=== PATIENT | male | born 1960 | race Caucasian/White ===

== ENCOUNTER 2021-05-14 11:12 | Emergency (ER) | payer OTHER, BC ==
[2021-05-14 11:43] LABS: CHLORIDE,CL 101 mEq/L (98-106); SODIUM,NA 138 mEq/L (136-145)
[2021-05-14] MEDS: Diphtheria,Pertussis(Acell),Tetanus Vaccine 0.5 ML Syringe IM ONE (12:55)
[2021-05-14 16:40] VITALS: BP 161/89; PULSE 80
== END 2021-05-14 13:20 | disposition home or self-care (01) ==
LOC: CC.ED 11:12
DX: S09.90XA Unspecified injury of head, initial encounter (principal); J44.9 Chronic obstructive pulmonary disease, unspecified; Z88.0 Allergy status to penicillin; Z23 Encounter for immunization; V89.2XXA Person injured in unspecified motor-vehicle accident, traffic, initial encounter; Y92.410 Unspecified street and highway as the place of occurrence of the external cause
CPT/HCPCS: 36415; 70450; 72125; 80053; 82150; 83605; 85025; 85610; 90471; 90715; 99284; 99284-25

== ENCOUNTER 2021-08-20 13:11 | Emergency (ER) | payer BC, OTHER ==
[2021-08-20 13:41] LABS: PTT,PARTIAL THROMBOPLSTIN TIME 26.2 SEC (23.2-32.3)
[2021-08-20 13:55] LABS: CHLORIDE,CL 98 mEq/L (98-106); SODIUM,NA 135 mEq/L (136-145)
[2021-08-20 13:56] LABS: ESTIMATED GFR > 60 mL/min (>=60)
[2021-08-20 13:59] VITALS: PULSE 70
[2021-08-20 14:17] VITALS: BP 156/75
== END 2021-08-20 14:30 | disposition home or self-care (01) ==
LOC: CC.ED 13:11
DX: U07.1 COVID-19 (principal); J44.9 Chronic obstructive pulmonary disease, unspecified; Z88.0 Allergy status to penicillin
CPT/HCPCS: 36415; 71046; 80053; 82550; 83615; 83690; 83735; 84484; 85025; 85610; 85730; 93005; 99283; 99285-25; U0002

== ENCOUNTER 2023-08-03 21:51 | Emergency (ER) | payer BC ==
[2023-08-03 21:57] VITALS: BP 159/80; PULSE 67
[2023-08-03] MEDS: Lidocaine 1% with EPINEPHrine 1:100,000 20 ML MDV INJECT ONE (22:21)
[2023-08-03] MEDS: Bacitracin Oint 1 GM U/D Packet TOP ONE ×2 (22:21→23:49)
== END 2023-08-03 23:15 | disposition home or self-care (01) ==
LOC: CC.ED 21:51
DX: S81.011A Laceration without foreign body, right knee, initial encounter (principal); S00.81XA Abrasion of other part of head, initial encounter; S00.31XA Abrasion of nose, initial encounter; S60.511A Abrasion of right hand, initial encounter; S60.512A Abrasion of left hand, initial encounter; J44.9 Chronic obstructive pulmonary disease, unspecified; F17.210 Nicotine dependence, cigarettes, uncomplicated; Z90.49 Acquired absence of other specified parts of digestive tract; Z79.899 Other long term (current) drug therapy; Z88.0 Allergy status to penicillin; W10.9XXA Fall (on) (from) unspecified stairs and steps, initial encounter
CPT/HCPCS: 12005; 73590-RT; 99283; J3490

== ENCOUNTER 2024-01-13 18:48 | Emergency (ER) | payer BC, MEDICARE ==
[2024-01-13 19:07] VITALS: BP 177/93; PULSE 60
[2024-01-13] MEDS: Lidocaine 1% with EPINEPHrine 1:100,000 10 ML MDV INJECT ONE (19:13)
[2024-01-13] MEDS: Bacitracin Oint 1 GM U/D Packet TOP ONE (19:43)
== END 2024-01-13 20:00 | disposition home or self-care (01) ==
LOC: CC.ED 18:48
DX: S81.811A Laceration without foreign body, right lower leg, initial encounter (principal); J44.9 Chronic obstructive pulmonary disease, unspecified; Z90.49 Acquired absence of other specified parts of digestive tract; F17.210 Nicotine dependence, cigarettes, uncomplicated; Z79.899 Other long term (current) drug therapy; W10.8XXA Fall (on) (from) other stairs and steps, initial encounter
CPT/HCPCS: 12004; 99282; J3490

== ENCOUNTER 2024-03-03 16:21 | Emergency (ER) | payer BC ==
[2024-03-03] MEDS: Aspirin 81 MG Tab.Chew PO ONE (16:30)
[2024-03-03] MEDS: Nitroglycerin 0.4 MG Tab.SL SL PRN (16:32)
[2024-03-03 16:42] LABS: BASOPHILS ABSOLUTE AUTO 0.05 10^3/uL (0.00-0.50); BASOPHILS PERCENT AUTO 0.6 % (0-1); EOSINOPHILS ABSOLUTE AUTO 0.09 10^3/uL (0.00-1.50); EOSINOPHILS PERCENT AUTO 1.1 % (0-6); HEMATOCRIT 48.8 % (42.0-52.0); HEMOGLOBIN 16.9 g/dL (14.0-18.0); IMMATURE GRAN ABSOLUTE AUTO 0.02 10^3/uL (0.00-0.49); IMMATURE GRAN PERCENT AUTO 0.2 % (0.0-4.9); LYMPHOCYTES PERCENT AUTO 13.4 % (24-44); MEAN CORPUSCULAR HEMOGLOBIN 35.8 pg (27.0-32.0); MEAN CORPUSCULAR HGB CONC 34.6 g/dL (32.0-36.0); MEAN CORPUSCULAR VOLUME 103.4 fL (83.0-97.0); MONOCYTES ABSOLUTE AUTO 0.93 10^3/uL (0.00-1.50); MONOCYTES PERCENT AUTO 11.3 % (0-10); NEUTROPHILS ABSOLUTE AUTO 6.02 x10^3/uL (1.80-8.00); NEUTROPHILS PERCENT AUTO 73.4 % (41-71); PLATELET COUNT,PLT 228 10^3/uL (150-400); RED BLOOD CELL COUNT 4.72 x10^6/uL (4.50-6.00); WHITE BLOOD CELL COUNT,WBC 8.2 10^3/uL (4.0-11.0)
[2024-03-03 16:55] LABS: ALBUMIN 3.7 g/dL (3.4-5.0); BILIRUBIN TOTAL 0.4 mg/dL (0.0-1.0); CALCIUM 9.2 mg/dL (8.4-10.1); EST CRCL DRUG DOSING (CG) 73.24 mL/min; MAGNESIUM 1.8 mg/dL (1.8-2.4); POTASSIUM,K 4.3 mEq/L (3.5-5.0); PROTEIN TOTAL,TP 7.2 g/dL (6.4-8.2)
[2024-03-03 16:58] LABS: INR 1.09 (0.92-1.18); PROTHROMBIN TIME 11.4 SEC (9.3-11.3); PTT,PARTIAL THROMBOPLSTIN TIME 27.4 SEC (20.0-30.0)
[2024-03-03 17:02] VITALS: BP 142/81; PULSE 64
[2024-03-03] MEDS: Take Home: Cyclobenzaprine 10 MG Tab, 4 Tab Pack PO ONE (17:11)
[2024-03-03] MEDS: Ketorolac 30 MG/ML SDV IVPUSH ONE (17:11)
[2024-03-03] MEDS: Orphenadrine 60 MG/2 ML Inj IM ONE (17:11)
== END 2024-03-03 17:19 | disposition home or self-care (01) ==
LOC: CC.ED 16:21
DX: M62.838 Other muscle spasm (principal); I10 Essential (primary) hypertension; J44.89 Other specified chronic obstructive pulmonary disease; Z90.49 Acquired absence of other specified parts of digestive tract; Z72.0 Tobacco use; Z88.0 Allergy status to penicillin; Z79.51 Long term (current) use of inhaled steroids; Z79.899 Other long term (current) drug therapy
CPT/HCPCS: 36415; 71046; 73030-RT; 80053; 82550; 83615; 83690; 83735; 84484; 85025; 85610; 85730; 93005; 93010; 96372; 96374; 99284; 99285-25; A9270-GY; J1885; J2360